=== PATIENT | male | born 1950 | race Caucasian/White ===

== ENCOUNTER 2018-10-08 22:42 | Inpatient (IN) | payer MEDICARE, OTHER | END 2018-10-27 13:26 | disposition still patient (30) | LOC: ICU 2S 10-11 10:26 → PCU 3S 10-22 15:15 → ER 22:42 → ED HOLD 10-09 01:56 → PCU 3S 10-09 11:40 | PROC: 5A1955Z Respiratory Ventilation, Greater than 96 Consecutive Hours (ICD-10-PCS; principal; ~2018-10-08) | DX: A41.9 Sepsis, unspecified organism (principal); J96.00 Acute respiratory failure, unspecified whether with hypoxia or hypercapnia; I50.21 Acute systolic (congestive) heart failure; J81.0 Acute pulmonary edema; L03.115 Cellulitis of right lower limb; R65.20 Severe sepsis without septic shock; J44.9 Chronic obstructive pulmonary disease, unspecified ==

== ENCOUNTER 2022-09-09 11:41 | Emergency (ER) | payer OTHER, MEDICARE ==
[~2022-09-09] VITALS: Ht 182.9 cm; Wt 100.0 kg
[~2022-09-09 11:41] MED LIST: ALBU8HFA PO; ALOG25TA PO; CHOL200052 PO; FERR324T3 PO; FINA5TAB11 PO; FURO-150 PO; GABA-534 PO; GLIP10TA11 PO; INSU100I25 SQ; LIDO1ADH78 TP; LISI20TA28 PO; METF-438 PO; OMEP20CA15 PO; POTA20TA34 PO; TERA10CA4 PO
[2022-09-09 12:31] LABS: BASOPHILS % (AUTO) 0.2 % (0-1); EOSINOPHILS % (AUTO) 0 % (0-6); HEMATOCRIT 37.7 % (42.0-52.0); LYMPHOCYTES # (AUTO) 0.6 X10'3 (1.1-4.8); LYMPHOCYTES % (AUTO) 6.7 % (21-51); MEAN CORPUSCULAR HEMOGLOBIN 29.3 PG (27.0-31.0); MEAN CORPUSCULAR HGB CONC 31.9 g/dL (33.0-36.5); MEAN CORPUSCULAR VOLUME 91.8 FL (78-98); MEAN PLATELET VOLUME 11.5 FL (7.4-10.4); MONOCYTES # (AUTO) 0.4 X10'3 (0-0.9); MONOCYTES % (AUTO) 4.7 % (2-12); NEUTROPHILS # (AUTO) 8.1 X10'3 (1.8-7.7); NEUTROPHILS % (AUTO) 88.4 % (42-75); PLATELET COUNT 219 X10'3 (140-440); RED CELL DISTRIBUTION WIDTH 16.2 % (11.5-14.5); WHITE BLOOD COUNT 9.1 X10'3 (4.5-11.0)
[2022-09-09] MEDS ORDERED: HYDROcodone/acetaminophen 5mg/325mg tablet PO ONE (12:35)
[2022-09-09 12:42] LABS: ALANINE AMINOTRANSFERASE 29 U/L (12-78); ALBUMIN/GLOBULIN RATIO 0.8 (1.1-1.5); ALKALINE PHOSPHATASE 94 IU/L (46-116); ANION GAP 8 (8-16); ASPARTATE AMINO TRANSFERASE 24 U/L (10-37); BILIRUBIN,TOTAL 0.5 MG/DL (0.1-1.0); BLOOD UREA NITROGEN 15 MG/DL (7-18); BUN/CREATININE RATIO 16.1 (5.4-32.0); CALCIUM 8.5 MG/DL (8.5-10.1); CHLORIDE 107 MMOL/L (99-107); CREATININE 0.93 MG/DL (0.60-1.10); MAGNESIUM 1.6 MG/DL (1.5-2.4); POTASSIUM 3.3 MMOL/L (3.5-5.1); SODIUM 141 MMOL/L (135-145); TOTAL CARBON DIOXIDE 25.9 MMOL/L (24-32); TOTAL PROTEIN 6.8 G/DL (6.4-8.2); eGFR 80 ML/MIN
[2022-09-09 12:51] LABS: GLUCOSE 47 MG/DL (70-104)
[2022-09-09 12:53] LABS: ANISOCYTOSIS 1+; LARGE PLATELETS FEW; PLATELET ESTIMATE NORMAL
[2022-09-09] MEDS ORDERED: POTASSIUM BICARB 20meq eff tab 20 MEQ TABLET.EFF PO ONE ×2 (12:55→13:05)
[2022-09-09] MEDS ORDERED: morphine 2 MG/ML inj. syringe IV ONE (13:43)
[2022-09-09 14:04] VITALS: BP 111/73
[2022-09-10] MEDS ORDERED: GABA-534 PO (18:22)
[2022-09-10] MEDS ORDERED: LISI20TA28 PO (18:22)
[2022-09-10] MEDS ORDERED: UNABLE TO OBTAIN (20:05)
== END 2022-09-09 14:08 | disposition home or self-care (01) ==
LOC: ER 11:41
DX: E11.649 Type 2 diabetes mellitus with hypoglycemia without coma (principal); R56.9 Unspecified convulsions; I10 Essential (primary) hypertension; J44.9 Chronic obstructive pulmonary disease, unspecified; E11.9 Type 2 diabetes mellitus without complications; F12.90 Cannabis use, unspecified, uncomplicated
CPT/HCPCS: 36415; 80053; 82948; 83735; 84484; 85008; 85025; 96374; 99284; J2270